=== PATIENT | male | born 1985 | race African-American/Black ===

== ENCOUNTER 2022-06-14 10:04 | Observation (INO) | payer MEDICARE, MEDICAID, SELFPAY ==
[2022-06-14] VITALS (15 sets, daily range): BP systolic 123–183; BP diastolic 82–106; PULSE 80–94; RESP 16–20; TEMP 36.4–36.7; O2SAT 99–100; BMI 51.0
--- NOTE | ~2022-06-14 | XR_ITS ---
XR chest 1V portable 06/14/2022 10:43 Indication: Chest pain Procedure: AP portable chest Comparison: No prior studies for comparison. Findings: Right basilar airspace disease. Cardiomegaly. No edema, pleural effusion or pneumothorax. N o acute osseous abnormality. Impression: 1: Right basilar airspace disease, compatible with pneumonia. 2: Cardiomegaly. Reviewed, dictated and finalized at location A. Impression: 1: Right basilar airspace disease, compatible with pneumonia. 2: Cardiomegaly.
--- NOTE | ~2022-06-14 | XR_ITS ---
XR foot LT min 3V 06/14/2022 10:43 INDICATION: Left foot pain for 2 days. No known injury. PROCEDURE: 4 views left foot COMPARISON: No prior studies for comparison. FINDINGS: Fracture, dislocation or subluxation is not identified. Lisfranc joint intact. The soft tis sues appear within normal limits. No foreign bodies are identified. IMPRESSION: 1: NO ACUTE BONE OR JOINT ABNORMALITY IDENTIFIED. Reviewed, dictated and finalized at location A.
--- NOTE | 2022-06-14 10:23 | ECG_ITS ---
Measurements Intervals [place] Rate: 89 P: 40 AK: 164 QRS: -18 QRSD: 87 T: 47 QT: 358 QTc: 437 Interpretive Statements SINUS RHYTHM LEFT VENTRICULAR HYPERTROPHY POOR R WAVE PROGRESSION, ANTERIOR LEADS BASELINE ARTIFACT- I, II, III, AVR, AVL BORDERLINE ECG Electronically Signed On 06-14-2022 10:36:15 CDT by Keron Robin D.O.
--- NOTE | 2022-06-14 10:30 | ED.CHESTPAIN ---
HPI - Chest Pain General Chief Complaint: Extremity Injury, Lower Stated Complaint: Left Foot Pain Time Seen by Provider: 06/14/22 10:13 Source: RN notes reviewed History of Present Illness HPI narrative: Patient presents emergency room from home for chest pain and foot pain. Patient states that both his symptoms began 2 days ago. The chest pain is located in the midsternal chest and does not radiate he states is described as sharp and stabbing the pain has been constant states he has a history of heart failure as well as a previous stent placement. States nothing makes the pain better or worse patient also notes pain over his left dorsal foot denies any known trauma or injury states he does hurt worse to walk on the foot denies any pain of the left ankle or knee Related Data Home Medications Medication Instructions Recorded Confirmed albuterol sulfate 90 mcg/actuation inhalation 06/14/22 aerosol inhaler (Ventolin HFA) albuterol sulfate 90 mcg/actuation inhalation 06/14/22 aerosol inhaler (Ventolin HFA) atorvastatin 80 mg tablet mg 06/14/22 carvedilol 25 mg tablet mg 06/14/22 cetirizine 10 mg tablet mg 06/14/22 06/14/22 cyclobenzaprine 10 mg tablet mg 06/14/22 diclofenac sodium 1 % topical gel topical 06/14/22 duloxetine 30 mg capsule,delayed mg PO 06/14/22 release furosemide 20 mg tablet mg 06/14/22 06/14/22 gabapentin 300 mg capsule mg 06/14/22 hydralazine 50 mg tablet mg 06/14/22 metformin 500 mg tablet mg 06/14/22 06/14/22 promethazine-DM 6.25 mg-15 mg/5 mL ml 06/14/22 oral syrup sildenafil 100 mg 06/14/22 sodium bicarbonate 650 mg 06/14/22 sodium zirconium cyclosilicate 10 g PO 06/14/22 gram oral powder packet (Lokelma) Allergies Allergy/AdvReac Type Severity Reaction Status Date / Time almond Allergy Itching Verified 06/14/22 10:23 Review of Systems Review of Systems: Gen.: Denies fevers or chills ENT: Denies congestion Respiratory: Denies shortness of breath or cough CV: See HPI GI: Denies abdominal pain nausea, emesis or diarrhea Musculoskeletal: reports left foot pain Neuro: Denies numbness, tingling, weakness or focal weakness Skin: Denies rash Except as documented, all other systems reviewed and negative [facility] Past Medical History Medical History (Updated 06/14/22 @ 13:47 by Kavon Briceno DO) CHF (congestive heart failure) Social History Social History (Updated 06/14/22 @ 11:21 by Kavon Briceno DO) Smoking status: Never smoker Exam Narrative: APPEARANCE: No acute distress, nontoxic, resting in bed EYES: EOMI HEENT: Normocephalic, atraumatic, OMM RESPIRATORY: No respiratory distress Clear to auscultation bilaterally with no rhonchi wheezing or rales. CARDIOVASCULAR: Regular rate and rhythm without murmurs rubs or gallops. ABDOMINAL: Soft, nontender, nondistended, no rebound or guarding MUSCULOSKELETAl: Moves all extremities. No clubbing, cyanosis or edema. Tender palpation of the left dorsal foot no swelling or ecchymosis no tenderness of the left ankle or knee dorsalis pedis pulse 2+ neurovascular intact NEURO: Awake and alert. Following commands, speech normal, no focal deficits SKIN:: Warm, dry. No rashes lesions or abrasions PSYCHIATRIC: Normal affect/mood, Course Course Emergency Course: Discussed with patient states he has a history of chronic renal insufficiency followed by nephrology at [facility] but is unsure of his normal creatinine. Did review the patient's chest x-ray. He denies having any cough any fever patient has no white count or shift doubt pneumonia at this time patient does state he has a history of interstitial lung disease believe this is most likely the cause of the findings Discussed with Dr. Edwards agrees with admission Discussed with JOSE Umanzor for Dr. Recinos agrees with consult Discussed with patient and family results of workup and diagnosis. Discussed need for admission. Patient and family understand and agree to loida
[2022-06-14 10:48] LABS: Basophils Absolute Auto 0.1 K/mm3 (0.0-0.1); Basophils Percent Auto 0.6 % (0.2-1.2); Eosinophils Absolute Auto 0.6 K/mm3 (0-0.3); Eosinophils Percent Auto 6.1 % (0-4.4); Hematocrit 31.6 % (42.0-52.0); Hemoglobin 9.6 g/dL (14.0-18.0); Immature Granulocyte Absolute 0.05 K/mm3 (0.00-0.031); Immature Granulocyte Percent A 0.6 % (0-0.5); Lymphocytes Absolute Auto 1.42 K/mm3 (0.9-3.2); Lymphocytes Percent Auto 15.7 % (18.3-44.2); Mean Corpuscular HGB Conc 30.4 g/dl (32-36); Mean Corpuscular Volume 82.3 fl (80-100); Mean Platelet Volume 9.7 fl (7.4-10.4); Monocytes Absolute Auto 0.9 K/mm3 (0.1-0.6); Monocytes Percent Auto 9.4 % (2.6-8.5); Neutrophils Absolute Auto 6.1 K/mm3 (1.3-6.7); Neutrophils Percent Auto 67.6 % (45.5-73.1); Platelet Count Result 308 k/mm3 (150-375); Red Blood Count 3.84 M/mm3 (4.6-6.20); Red Cell Distribution Width 14.6 % (11.5-14.5)
[2022-06-14 10:59] LABS: Alanine Aminotransferase 13 U/L (6-50); Albumin Level 3.9 g/dL (3.5-5.1); Alkaline Phosphatase 119 U/L (38-126); Anion Gap 9 mmol/L (8-16); Aspartate Amino Transferase 17 U/L (17-59); Bilirubin,Total 0.3 mg/dL (0.2-1.3); Blood Urea Nitrogen 41 mg/dL (9-20); Calcium 8.8 mg/dL (8.4-10.2); Carbon Dioxide 25 mmol/L (22-30); Chloride 106 mmol/L (98-107); Estimated CRCL calculation 47 ml/min; Estimated Glomerular Filt Rate 21; Glucose 147 mg/dL (65-110); Potassium 4.9 mmol/L (3.4-5.0); Sodium 140 mmol/L (137-145)
[2022-06-14 11:11] LABS: NT Pro B Type Natriuretic Pept 170 pg/mL (5-100); Troponin I < 0.012 ng/mL (0.000-0.034)
--- NOTE | 2022-06-14 11:46 | PC.NURSE ---
pt attempting to provide urine sample at this time
[2022-06-14] MEDS: MORPHINE SULFATE (*CRX) 2 MG/ML INJ IV PUSH (12:18)
[2022-06-14 12:32] LABS: Prothrombin Time 12.9 Seconds (11.1-14.7)
[2022-06-14 12:33] LABS: Partial Thromboplastin Time 33.9 SECONDS (22.3-36.8)
[2022-06-14 12:36] LABS: Appearance Urine Clear (Clear); Bilirubin Urine Negative (Negative); Blood Urine Negative (Negative); Color Urine Yellow (Yellow); Glucose Urine UA Negative (Negative); Ketones Urine Negative (Negative); Leukocyte Esterase Ur Negative LEU/UL (Negative); Nitrate Urine Negative (Negative); Protein Urine 3+ mg/dL (Negative); Urobilinogen Urine 0.2 mg/dL (<2.0); pH Urine 5.5 (5.0-9.0)
[2022-06-14 12:42] LABS: RBC Urine 0-2 /hpf (0-2); WBC Urine 0-3 /hpf
[2022-06-14 12:59] LABS: Add Urine Microscopic? YES
[2022-06-14 13:56] LABS: Magnesium 2.2 mg/dL (1.6-2.3)
--- NOTE | 2022-06-14 14:10 | PM.IMHP ---
H&P: HPI History of Present Illness Date/Time: 06/14/22 14:10 <Fatoumata Pritchett PA-C - Last Filed: 06/14/22 16:12> Chief Complaint: Chest pain x 2 days and right foot pain x 5 days. <Fatoumata Pritchett PA-C - Last Filed: 06/14/22 16:12> Narrative: Mr. Galan is a pleasant 36 year old male with history of morbid obesity, interstitial lung disease (followed by Dr. Saxena at [facility]), CAD s/p PCI in 2019, CHF (Followed by Dr. Bueno at [facility]), and CKD (followed by Dr. Preston at [facility]), diabetes mellitus, and 'inflammatory arthritis' who presents for 2 days of stabbing retrosternal chest pain and 5 days of pain to the dorsum of his foot. Regarding the chest pain, he states it is behind the breastbone, stabbing in nature, and does not radiate. He denies diaphoresis, palpitations, pain in the arm or back, syncope or near syncope. He states the pain occurs at rest, and he is unsure if it is worse with activity as he does not get up off the couch frequently. He denies fevers, chills, nausea, vomiting, diarrhea, urinary changes, blurred vision, headaches, lower extremity swelling. He states he constantly is short of breath due to his interstitial lung disease, but does not feel worse off since the chest pain started. Regarding his left foot pain, he states this started approximately 5 days ago and is not made better by icy hot, ice packs, hot showers. the pain is on the dorsum of the foot and is painful to the touch. He has experienced this before in his right foot and the pain lasted for many days. He denies family history of gout, but states he has inflammatory arthritis of the hip and wonders if it has spread to his feet. He takes hydrocodone and percocet as well as flexeril as needed for the pain in his hip. He takes inhalers for his interstitial lung disease, and does not use supplemental O2 at home. He states in 2019 he began coughing up blood after having an orgasm and his buckle stapler told him it may have been related to his heart failure. His heart failure was diagnosed 3 years ago when he had his stent placed at [facility]. He denies history of [place]. Since that time he has been following with his [facility] scarrer regularly. His last appointment was 2 months ago. He cannot recall when his last echo was, but states it was 'a while' ago. He takes hydralazine 50mg TID as well as carvedilol for his hypertension. He follows regularly with a sliver machine operator for CKD, and his baseline BUN/Cr from 04/2022 is 38/2.79. His sliver machine operator recently discontinued his jardience and lisinopril, and started him on PO lasix. He also has Diabetes Mellitus, for which he takes metformin. His last A1C was 6.7. He recently started taking sildinafil for erectile dysfunction. He has a strong family history of heart disease and diabetes in both his mother and father, who are both living. His father had a heart attack at a young age. He has a diet heavy in steaks and red meat, having eaten more of that than usual in the past month.? He also drinks one simfy pealeaselock shot every other day. He occasionally smokes marijuana and is a never smoker. He does not get much exercise and typically sits on the couch to watch TV.? He is a retired cook.? ER evaluation was significant for EKG showing NSR, LVH, poor R wave progression; initial troponin <0.012; CXR showing right basilar airspace disease, compatible with pneumonia and cardiomegaly; BUN/Cr of 41/3.30, BNP of 170. VSS, patient saturating 100% on room air at this time. Cardiology has been consulted from the ER chest pain and given risk factors/history. He is being admitted in this setting for further evaluation of his chest pain. <Fatoumata Pritchett PA-C - Last Filed: 06/14/22 16:12> Review of Systems Review of Systems: All systems reviewed & are unremarkable except as noted in HPI and below <Fatoumata Pritchett PA-C - Last Filed: 06/14/22 16:12> [facility] Past Medical History Medical History: Medical History (Reviewed
[2022-06-14] MEDS: ASPIRIN 81 MG CHEWABLE TABLET 324 MG PO (14:36)
[2022-06-14 14:50] LABS: SARS-CoV-2 RNA PCR Negative
[2022-06-14 14:59] LABS: Hemoglobin A1C 6.4 % (<5.7)
[2022-06-14 15:18] LABS: Troponin I < 0.012 ng/mL (0.000-0.034)
--- NOTE | 2022-06-14 15:34 | ADMGEN ---
This patient, Alpesh Galan, was admitted to IMU Room 206-02 at 1505. Patient/family oriented to hospital policies and general routines including ID bracelet, bed and alarms, visiting hours, pain management, procedures, bathroom and other care routines, personal items, smoking policy, room service/diet, and visiting hours. Information on how to activate the Rapid Response Team has been discussed. Patient/Family are encouraged to report perceived risks to care and to ask questions if they do not understand what they are told or what they should do.
--- NOTE | 2022-06-14 16:11 | PM.CNCAR ---
Assessment and Plan Assessment and plan (1) Chest pain: Code(s): R07.9 - Chest pain, unspecified Status: Acute Plan This is a 36-year-old man with apparent history of coronary disease and percutaneous revascularization he states in 2018. The details of that are unknown to us. He has some atypical intermittent chest pain since last week or Tuesday. In the face of that his ECG does not show any acute findings and his troponin levels times the 1st 2 sets are negative. He clearly has advanced chronic kidney disease as well. At this point since his symptoms are atypical in his biomarkers are negative I do not believe we need to initiate an ischemia workup at this hospital. He of is not a candidate for catheterization given the fact that he has advanced chronic kidney disease and stress testing is not necessary given the atypical nature of his symptoms and the fact that the scans will clearly not be of interpretable quality with a BMI of 51. He can follow-up after discharge from here with his established lime puller if you have any additional cardiac questions please let me know Leo Recinos MD [facility] History of Present Illness History of Present Illness Consult date/time: 06/14/22 16:11 Consult reason: chest pain Reason For Visit: Chest pain/Chronic renal insufficiency Narrative: This is pleasant but rather unfortunate 36-year-old man I am seeing at the request of the hospitalist's today/this afternoon because of some chest pain. The patient is unknown to me and appears to be unknown to physicians here at [facility]. He came here to the emergency room because of pain in his left foot and his chest. He states the symptoms began last week or Tuesday and have been occurring persistently since then his foot pain has been unremitting his chest pain has been intermittent. He describes the chest pain as a stabbing intermittent left precordial pain that comes and goes in a nonexertional fashion it is not associated with any sense of air hunger diaphoresis nausea or vomiting. In the emergency room his electrocardiogram shows sinus rhythm with poor R-wave progression but without any acute ischemic ECG findings. His troponin levels have been ordered in the 1st 2 sets are negative. His lab data is remarkable for relatively severe renal disease with a BUN of 41 and a creatinine of 3.3. He states that he has a history of coronary artery disease and follows with a lime puller in the [facility]. He says that about in 2018 he was evaluated at [facility] and was found to have coronary disease and was treated with a stent. He can not remember the circumstances of that admission or the vessel that was stented. His lime puller tells him that his cardiac status has been otherwise relatively stable. He says he is known to have chronic kidney disease and also has a signal intelligence/electronic warfare at the [facility] clinic. When I came in the room to see him he is visiting with his he is comfortable cooperative and does not appear to be in any distress. Review of Systems Constitutional: Constitutional: Reports fatigue Eyes: Eyes: Reports no additional eye complaints ENT: Reports system reviewed and no additional complaints, except as documented Cardiovascular: Cardiovascular: Reports as per HPI Respiratory: Respiratory: Reports no additional respiratory complaints Gastrointestinal: Gastrointestinal: Reports no additional gastrointestinal complaints Musculoskeletal: Musculoskeletal: Reports back pain Integumentary/Breasts: Skin/Breast: Reports system reviewed and no additional complaints, except as docu Neurologic: Reports system reviewed and no additional complaints, except as documented Endocrine: Endocrine: Reports no additional endocrine complaints Hematologic/Lymphatic: Hematologic/Lymphatic: Reports no additional hematologic/lymphatic complaints Allergic/Immuno
[2022-06-14] MEDS: HYDROcodone/acetaminophen (*CRX) 5-325 MG TABLET 1 TAB PO ×2 (17:16→23:36)
[2022-06-14] MEDS: MUPIROCIN 2% OINT 22 GM TUBE 1 APPLIC TOPICAL (17:16)
[2022-06-14 17:25] LABS: Glucose Point of Care 138 mg/dl (65-105)
[2022-06-14 17:28] LABS: Troponin I < 0.012 ng/mL (0.000-0.034)
[2022-06-14 20:17] LABS: Glucose Point of Care 122 mg/dl (65-105)
[2022-06-14] MEDS: ACETAMINOPHEN 325 MG TABLET 650 MG PO (23:38)
[2022-06-15] VITALS (11 sets, daily range): BP systolic 147–162; BP diastolic 84–91; PULSE 79–100; RESP 18–20; TEMP 36.2–36.8; O2SAT 99–100
--- NOTE | 2022-06-15 | ECHO_ITS ---
Patient Info Name: Alpesh Galan Age: 36 years : 1985 Gender: Male Ht: 74 in Wt: 379 lbs BSA: 3.08 m2 HR: 89 bpm BP: 148 / 84 mmHg Heart Rhythm: Sinus Rhythm Technical Quality: Fair Exam Date: 06/15/2022 8:41 AM Exam Location: [facility] Pulmonary Patient Status: Outpatient Admit Date: 06/14/2022 Staff Ordering Physician: Fatoumata Pritchett PA-C Medical Researcher: Basia Reed RDCS Attending Provider: Fatoumata Pritchett PA-C Referring Physician: Shreyas APPIAH; Exam Type: CA echo dop color flow w con Study Info Indications - chest pain, murmur Complete two-dimensional, color flow and Doppler transthoracic echocardiogram is performed with contrast to opacify the left ventricle and to improve the deliniation of the left ventricle endocardial borders. Contrast/Agitated Saline Contrast/Ag. Saline: Definity Amount: 3.00 ml Administered By: Basia Reed RDCS Existing IV Access: Yes IV Access Condition: patent with no signs of infiltration Summary 1. Normal LV size, moderate LVH, normal LV systolic function, ejection fraction approximately 70%; grade 1 diastolic dysfunction. Mild left atrial enlargement. Normal mitral valve structure, no significant MR. Aortic valve is not well visualized, no hemodynamically significant stenosis by Doppler. Trace TR, RVSP 20 mmHg. Sinus rhythm. Left Ventricle Left ventricular chamber dimension is normal. Left ventricular systolic function is normal, estimated at 65-70%. There is moderately increased left ventricular wall thickness. The left ventricular diastolic function is grade I diastolic dysfunction. Right Ventricle Right ventricular chamber dimension is normal. Right ventricular systolic function is normal. Left Atria Left atrial chamber dimension is mildly enlarged. Right Atria Right atrial chamber dimension is normal. Aortic Valve The aortic valve is not well visualized. There is no aortic valve stenosis. Pulmonic Valve The pulmonic valve is not well visualized. Mitral Valve The mitral valve has normal leaflets. There is no mitral valve regurgitation. Tricuspid Valve The tricuspid valve leaflets are normal. There is trace tricuspid valve regurgitation. Pericardium/Pleural The pericardium appears normal. Aorta The aortic root size at the sinus of Valsalva is normal. Left Ventricular Outflow Tract Name Value Normal LVOT 2D LVOT Diameter 2.13 cm LVOT Doppler LVOT Peak Gradient 4 mmHg LVOT Mean Gradient 2 mmHg LVOT VTI 19.46 cm LVOT VTI/AV VTI Ratio 0.76 LVOT Stroke Volume 69.36 ml LVOT CO 5.36 l/min LVOT CI 1.74 L/min/m2 Pulmonic Valve Name Value Normal RVOT Doppler
[2022-06-15] MEDS: ATORVASTATIN 40 MG TABLET 80 MG BY MOUTH (00:11)
[2022-06-15] MEDS: GABAPENTIN 300 MG CAPSULE BY MOUTH ×3 (00:12→12:47)
[2022-06-15] MEDS: carvediloL 25 MG TABLET PO ×2 (00:12→09:22)
[2022-06-15] MEDS: WATER FOR IRRIGATION, STERILE 1,000 ML BOTTLE 1000 ML (01:03)
[2022-06-15 04:40] LABS: Basophils Percent Auto 0.4 % (0.2-1.2); Eosinophils Absolute Auto 0.3 K/mm3 (0-0.3); Eosinophils Percent Auto 2.9 % (0-4.4); Hematocrit 29.6 % (42.0-52.0); Hemoglobin 9.1 g/dL (14.0-18.0); Immature Granulocyte Absolute 0.06 K/mm3 (0.00-0.031); Immature Granulocyte Percent A 0.6 % (0-0.5); Lymphocytes Absolute Auto 1.59 K/mm3 (0.9-3.2); Lymphocytes Percent Auto 16.8 % (18.3-44.2); Mean Corpuscular HGB Conc 30.7 g/dl (32-36); Mean Corpuscular Hemoglobin 25.6 pg (26-34); Mean Corpuscular Volume 83.4 fl (80-100); Mean Platelet Volume 10.2 fl (7.4-10.4); Monocytes Absolute Auto 1.2 K/mm3 (0.1-0.6); Monocytes Percent Auto 12.3 % (2.6-8.5); Neutrophils Absolute Auto 6.3 K/mm3 (1.3-6.7); Platelet Count Result 290 k/mm3 (150-375); Red Blood Count 3.55 M/mm3 (4.6-6.20); Red Cell Distribution Width 14.4 % (11.5-14.5); White Blood Count 9.5 K/mm3 (4.5-10.0)
[2022-06-15 04:54] LABS: Anion Gap 8 mmol/L (8-16); Blood Urea Nitrogen 38 mg/dL (9-20); CRP 3.6 mg/dL (<1.0); Calcium 8.6 mg/dL (8.4-10.2); Carbon Dioxide 22 mmol/L (22-30); Chloride 107 mmol/L (98-107); Estimated CRCL calculation 51 ml/min; Estimated Glomerular Filt Rate 29; Glucose 123 mg/dL (65-110); Sodium 137 mmol/L (137-145); Uric Acid 13.3 mg/dL (3.5-8.5)
[2022-06-15] MEDS: HYDROcodone/acetaminophen (*CRX) 5-325 MG TABLET 1 TAB PO ×2 (05:16→12:57)
[2022-06-15] MEDS: ACETAMINOPHEN 325 MG TABLET 650 MG PO (05:17)
[2022-06-15 07:25] LABS: Erythrocyte Sedimentation Rate > 140 mm/hr (0-20)
[2022-06-15 07:52] LABS: Glucose Point of Care 116 mg/dl (65-105)
[2022-06-15] MEDS: PERFLUTREN LIPID MICROSPHERES 1.5 ML VIAL DILUTED TO 10 ML TOTAL VOLUME IV PUSH (09:06)
--- NOTE | 2022-06-15 09:07 | IVDEFINITY ---
Prior to administration of IV Definity the patient was educated on the risks and benefits of the imaging enhancing agent including potential adverse side effects. The patient verbalized understanding. Allergies were verified. No exclusion criteria were identified and at least one of the following inclusion criteria were met: 1) physician request, 2) patient technically difficult to image (per the [place] [employer]chocardi[employer] guidelines of two or more segments not discernable within the apical view), or 3) questionable left ventricular function. ?
[2022-06-15] MEDS: DICLOFENAC SODIUM 1% 100 GM GEL (*BKC) 1 APPLIC TOPICAL (09:20)
[2022-06-15] MEDS: CLINDAMYCIN PHOS 1% 30 GM GEL 1 APPLIC TOPICAL (09:21)
[2022-06-15] MEDS: hydrALAZINE HCL 50 MG TABLET PO ×2 (09:23→12:47)
[2022-06-15] MEDS: ENOXAPARIN 40 MG/0.4 ML SYRINGE SUB-Q (09:23)
[2022-06-15] MEDS: FUROSEMIDE 20 MG TABLET 60 MG BY MOUTH (09:23)
[2022-06-15] MEDS: DULoxetine HCL 30 MG CAPSULE.DR PO (09:24)
[2022-06-15] MEDS: FOLIC ACID 1 MG TABLET PO (09:24)
[2022-06-15] MEDS: LORATADINE 10 MG TABLET PO (09:24)
[2022-06-15] MEDS: SODIUM BICARBONATE TAB 650 MG TABLET 1300 MG PO (09:24)
[2022-06-15] MEDS: FERROUS SULFATE 324 MG TABLET PO (09:25)
[2022-06-15] MEDS: ASPIRIN 81 MG CHEWABLE TABLET PO (09:32)
[2022-06-15] MEDS: CYCLOBENZAPRINE HCL 10 MG TABLET BY MOUTH (09:32)
--- NOTE | 2022-06-15 10:29 | PM.DS ---
DS: Admitting Diagnosis Discharge Date 06/15/22 <Fatoumata Pritchett PA-C - Last Filed: 06/15/22 12:18> Admitting Diagnosis Chest Pain, Left foot Pain <Fatoumata Pritchett PA-C - Last Filed: 06/15/22 12:18> DS: Discharge Diagnosis Discharge Diagnosis (1) Chest pain: Code(s): R07.9 - Chest pain, unspecified <Fatoumata Pritchett PA-C - Last Filed: 06/15/22 12:18> Status: Acute <Fatoumata Pritchett PA-C - Last Filed: 06/15/22 12:18> Assessment and Plan: 2 day history of stabbing, non-radiating chest pain. Denies diaphoresis, worsening with activitiy, palliation with medicine. Denies history of blood clots, no calf swelling, pain. History of PCI/ CHF. EKG showed NSR, LVH, poor R wave progression. Serial Troponins I <0.012 CXR showed right lower lobe infiltrates and cardiomegaly. Cardiology has been consulted and advised no further hospital workup is required. Opine this is likely not an ACS picture. Aspirin and morphine given in the ER Mg 2.2 TSH normal Cardiology has been consulted and advised no further hospital workup is required for cardiac causes. Opine this is likely not an ACS picture, patient's chest pain has resolved but foot pain persists. ?Pt ok to discharge at this time. <Fatoumata Pritchett PA-C - Last Filed: 06/15/22 12:18> (2) Acute pain of left foot: Code(s): M79.672 - Pain in left foot <Fatoumata Pritchett PA-C - Last Filed: 06/15/22 12:18> Status: Acute <Fatoumata Pritchett PA-C - Last Filed: 06/15/22 12:18> Assessment and Plan: Pt with history of inflammatory arthritis and prior similar foot pain in the right foot, here for 5 days of left foot pain on the dorsum of the foot. No reported trauma or injury that the patient can think of. Physical exam significant for area of maceration between the 4th and 5th toe of the left foot without erythema, fluctuance, warmth. Patient does endorse eating a lot of red meat recently, has 3-4 drinks weekly. Patient denies neuropathy, but does take gabapentin daily. ESR and CRP were elevated, and Uric acid was 13.3. This is likely Gout. Advised patient formal diagnosis cannot be made without arthrocentesis, however his clinical picture is very consistent with a gout flair given he experienced a similar episode on his right foot previously. Discussed low purine diet, will discharge with course of steroids given patient's renal functions make NSAID use inappropriate. Patient will follow up with his projection engineer tomorrow outpatient for additional recommedations for treatment of the gout given his CKD. - XR foot showed no acute fracture. - No Leukocytosis. - Morphine given in the ER. - [place] and tylenol for pain control. - Topical mupirocin for the wound and local wound care. <Fatoumata Pritchett PA-C - Last Filed: 06/15/22 12:18> (3) CHF (congestive heart failure): Code(s): I50.9 - Heart failure, unspecified <Fatoumata Pritchett PA-C - Last Filed: 06/15/22 12:18> Status: Acute <Fatoumata Pritchett PA-C - Last Filed: 06/15/22 12:18> Assessment and Plan: Patient with history of CHF and cardiomegaly on CXR. Audible murmur on exam today. Pt unsure of his last echo, some time ago. BNP 170, may be due to his CKD and underlying CHF. Echo deferred at this time given patient follows closely with a hoop coiling machine operator and no further cardiac workup necessary at this time per cardiology. Patient does not appear fluid overloaded at this time. No pulm vascular congestion or pulmonary edema on CXR, no significant lower extremity swelling. <Fatoumata Pritchett PA-C - Last Filed: 06/15/22 12:18> (4) Interstitial lung disease: Code(s): J84.9 - Interstitial pulmonary disease, unspecified <Fatoumata Pritchett PA-C - Last Filed: 06/15/22 12:18> Status: Acute <Fatoumata Pritchett PA-C - Last Filed: 06/15/22 12:18> Assessment and Plan: He had a lung biopsy in 2019, follows with pulmonology. He
[2022-06-15 11:58] LABS: Glucose Point of Care 138 mg/dl (65-105)
[2022-06-15] MEDS: predniSONE 20 MG TABLET 40 MG PO (12:46)
== END 2022-06-15 13:02 | disposition home or self-care (01) ==
LOC: ANHED 11:28 → ANHIMU 13:40
PROVIDERS: Admitting Provider Family Medicine; Emergency Provider Emergency Medicine; Visit Provider Student in an Organized Health Care Education/Training Program
DX: R07.9 Chest pain, unspecified (principal); M79.672 Pain in left foot; I13.0 Hypertensive heart and chronic kidney disease with heart failure and stage 1 through stage 4 chronic kidney disease, or unspecified chronic kidney disease; I50.9 Heart failure, unspecified; E11.22 Type 2 diabetes mellitus with diabetic chronic kidney disease; N18.9 Chronic kidney disease, unspecified; J84.9 Interstitial pulmonary disease, unspecified; Z95.5 Presence of coronary angioplasty implant and graft; F12.90 Cannabis use, unspecified, uncomplicated; Z79.891 Long term (current) use of opiate analgesic; Z79.52 Long term (current) use of systemic steroids; Z79.51 Long term (current) use of inhaled steroids; Z79.84 Long term (current) use of oral hypoglycemic drugs; E66.01 Morbid (severe) obesity due to excess calories; Z68.43 Body mass index [BMI] 50.0-59.9, adult; Z20.822 Contact with and (suspected) exposure to COVID-19
CPT/HCPCS: 36415; 71045; 73630; 80048; 80053; 81001; 82948; 83036; 83735; 83880; 84443; 84484; 84550; 85025; 85610; 85652; 85730; 86140; 93005; 96372; 96374; 96375; 99285; A9270; C8929; C9803; G0378; J1650; J2270; J7512; Q9957; U0003; U0005